=== PATIENT | male | born 1960 | race Caucasian/White ===

== ENCOUNTER 2019-02-09 22:21 | Observation (INO) ==
[2019-02-09] MEDS ORDERED: Aspirin 81 MG TAB.CHEW PO ONE (22:33)
[2019-02-09 22:47] LABS: Basophils % 0.4 %; Eosinophils % 0.2 %; Hematocrit 38.6 % (37.5-50.1); Hemoglobin 12.5 g/dL (12.9-16.9); Immature Granulocytes % 0.8 % (0-4); Lymphocytes % 21.8 %; Mean Corpuscular HGB Conc 32.4 g/dL (31.6-35.5); Mean Corpuscular Hemoglobin 26.2 pg (28.0-33.3); Mean Corpuscular Volume 80.8 fL (83.0-100.0); Mean Platelet Volume 9.8 fL (9.4-12.4); Monocytes # 0.7 K/mcL (0.0-1.3); Neutrophils # 6.3 K/mcL (1.6-8.9); Platelet Count 236 K/mcL (140-400); Red Blood Count 4.78 M/mcL (4.19-5.50); Red Cell Distribution Width 13.6 % (11.5-14.5); Segmented Neutrophils % 68.8 %; White Blood Count 9.1 K/mcL (4.3-11.1)
[2019-02-09 23:02] LABS: Activated Partial Thrombo Time 28.8 Seconds (26.0-36.0)
[2019-02-09 23:06] LABS: BUN/Creatinine Ratio 20 (6-26); Blood Urea Nitrogen 22 mg/dL (6-20); Calcium 8.6 mg/dL (8.6-10.3); Carbon Dioxide 23 mEq/L (23-29); Chloride 103 mEq/L (98-107); Glucose 401 mg/dL (70-105); Osmolality,Calculated 302 (280-300); Potassium 3.7 mEq/L (3.5-5.1); Sodium 136 mEq/L (136-145); eGFR For African Americans > 60 (> 60); eGFR For Non-African Americans > 60 (> 60)
[2019-02-09 23:15] LABS: Troponin I 0.04 ng/mL (< 0.04)
--- NOTE | 2019-02-09 23:23 | Emergency Department Note ---
Disposition Clinical Impression: Chest pain Disposition: Admitted As Inpatient Condition: Good Time of Disposition: 01:30 Chest Pain HPI - General Chief Complaint: ED Chest Pain Stated Complaint: chest pain Source: patient Mode of arrival: private vehicle Limitations: no limitations Vital Signs Reviewed: Yes Nursing Notes Reviewed: Yes - History of Present Illness HPI Narrative: Patient presents to the ED complaining of intermittent chest pain is been going on all day since about 12:30 PM. He was cleaning some things out around his home but denies any particular strenuous activity. The heaviest thing he lifted was a microwave. Pain is across the upper chest and he describes it as a dull and throbbing pain. It was 7 out of 10 at its worse. Episodes would last for 5-10 minutes at a time. There is no associated shortness of breath, lightheadedness or dizziness. No palpitations or leg swelling. He states his last episode of pain resolved just prior to arriving at the ED but his convinced him to get seen anyway. History is notable for CHF, diabetes, high blood pressure, high cholesterol and A. fib. He had an ablation in 2015 and is not aware of any A. fib episodes since then. He states he did have a catheter a few years ago but has never had any stents placed and has never been diagnosed with an PR. He sees cardiology at [facility], Dr. Cruz. He has an appointment with his PCP, Madalyn Yanes on . Severity scale (1-10): 6 - Related Data Home Medications Medication Instructions Recorded Confirmed Insulin ASPART [NovoLOG] 5 - 10 unit SQ TIDWM 08/08/15 02/09/19 Liraglutide [Victoza 2-Foster] 1.2 mg SQ QAM 08/08/15 02/09/19 Lisinopril [Zestril] 40 mg PO QAM 08/08/15 02/09/19 metFORMIN [Glucophage] 1,000 mg PO BIDWM 08/08/15 02/09/19 Aspirin [Lo-Dose Aspirin EC] 81 mg PO QDPC 01/04/17 02/09/19 Carvedilol [Coreg] 25 mg PO BID 12/17/17 02/09/19 Diltiazem HCl [Diltiazem 24Hr Cd] 180 mg PO DAILY 12/17/17 02/09/19 FLUoxetine HCl [Fluoxetine HCl] 40 mg PO DAILY 12/17/17 02/09/19 Furosemide [Lasix] 40 mg PO QMWF 12/17/17 02/09/19 Indomethacin [Indocin] 25 mg PO TIDWM PRN 12/17/17 02/09/19 Pravastatin Sodium [Pravachol] 40 mg PO QPM 12/17/17 02/09/19 Insulin Degludec [Tresiba 28 unit SQ HS 05/08/18 02/09/19 Flextouch U-100] Previous Rx's Medication Instructions Recorded carBAMazepine [Tegretol] 100 mg PO DAILY #10 tablet 07/24/18 Cyclobenzaprine [Flexeril] 10 mg PO TID PRN #21 tablet 09/24/18 Naproxen [Naprosyn] 500 mg PO BID PRN #20 tablet 09/24/18 Allergies Allergy/AdvReac Type Severity Reaction Status Date / Time Procaine [From Novocain] AdvReac Unconscious Verified 02/09/19 22:26 Constitutional: Denies: fever, chills, weakness, weight change Eyes: Denies: eye pain, eye discharge, vision change ENT ED: Denies: ear pain, throat pain, dental pain, hearing loss, epistaxis, congestion, dysphagia Cardiovascular: Reports: as per HPI, chest pain. Denies: palpitations, dyspnea on exertion, edema, syncope Respiratory: Denies: cough, dyspnea, wheezes, hemoptysis, stridor Gastrointestinal: Denies: abdominal pain, nausea, vomiting, diarrhea, cons tipation, hematemesis, melena, hematochezia Genitourinary: Denies: urgency, dysuria, frequency, hematuria Musculoskeletal: Denies: back pain, neck pain, arthralgia, myalgia Integumentary: Denies: rash, abrasion, lesions Neurological: Denies: headache, weakness, numbness, paresthesias, confusion, abn ormal gait, vertigo Psychiatric: Denies: anxiety, depression, suicidal thoughts, homicidal thoughts, auditory hallucinations, visual hallucinations Endocrine: Denies: fatigue Hematological/Lymphatic: Denies: easy bleeding, easy bruising Allergic/Immunologic: Denies: facial swelling, urticaria Chest Pain PMH - Past Medical History Medical history: Reports: arthritis, atrial fibrillation, CHF, diabetes, GERD, hyperlipidemia, hypertension, kidney stones, TIA, other Psychiatric history: Reports: depression - Social History Smoking Status: 2nd Hand Smoke Exposure Alcohol use: Reports: none Drug use: Reports: none Physical Exam - General Limitations: no limitations General appearance: alert, in no apparent distress, obese - Head Head exam: atraumatic, normocephalic, normal inspection - Eye Eye exam: Present: normal appearance - ENT ENT exam: normal exam, normal oropharynx, mucous membranes moist - Neck Neck exam: Present: normal inspection, full ROM, trachea midline - Chest Chest inspection: Present: normal inspection, symmetric chest wall rise. Absent: tenderness - Respiratory Respiratory exam: Present: normal lung sounds bilaterally - Cardiovascular Cardiovascular exam: Present: regular rate, normal rhythm, normal heart sounds - Abdominal Exam Abdominal exam: Present: soft, Non-Tender. Absent: tenderness, distention, guarding, rebound, rigidity - Extremities Exam Extremities exam: Present: normal inspection, full ROM. Absent: tenderness, pedal edema - Back Exam Back exam: Present: normal inspection, full ROM. Absent: tenderness - Neurological Exam Neurological exam: Present: alert, oriented X3 - Psychiatric Psychiatric exam: Present: normal affect, normal mood - Skin Skin exam: Present: warm, dry, intact, normal color Course Course Narrative: Agent presents to the ED with complaint of intermittent chest pain that has been going on all day. He currently is not having any pain. Finger stick glucose is 352. He was very hypertensive initially on arrival 214/96 with this improved to 170/175 daily after arrival. Physical exam is unremarkable. Given his cardiac history however will obtain full cardiac workup including labs and chest x-ray. EKG on arrival does not show any acute ischemic changes - Reevaluation(s) Reevaluation #1: Initial troponin is elevated at 0.04 but patient continues to deny any current chest pain. We will continue to monitor and repeat. Blood pressure and glucose have improved. Reevaluation #2: Repeat EKG is unchanged and repeat troponin remains 0.04. Given patient's cardiac history discuss with him that felt it would be in his best interest to be admitted for continued monitoring and serial troponins. Patient remains chest 3 but is in agreement with admission. I spoke to the hospital for call, Dr. Kaur who agreed to accept the patient. Vital Signs Temperature 97.8 F 02/09/19 22:22 Pulse Rate 70 02/09/19 22:22 Respiratory Rate 16 02/09/19 22:22 Blood Pressure 214/96 02/09/19 22:22 O2 Sat by Pulse Oximetry 94 02/09/19 22:22 Temperature 98.6 F 02/10/19 06:34 Pulse Rate 86 02/10/19 06:34 Respiratory Rate 18 02/10/19 06:34 Blood Pressure 172/76 02/10/19 06:34 O2 Sat by Pulse Oximetry 96 02/10/19 06:34 Oxygen Delivery Oxygen Delivery Room Air Chest Pain - Differential Diagnosis Likely: stable angina, atypical chest pain, chest pain - Medical Records Medical records reviewed: Yes I reviewed the patient's medical records. - Lab Data Lab results reviewed: Yes I reviewed the patient's lab results. Result diagrams: 02/09/19 22:39 02/09/19 22:39 Lab Results 02/09/19 02/09/19 02/09/19 Range/Units 22:30 22:32 22:39 WBC (4.3-11.1) K/mcL RBC (4.19-5.50) M/mcL Hgb (12.9-16.9) g/dL Hct (37.5-50.1) % MCV (83.0-100.0) fL MCH (28.0-33.3) pg MCHC (31.6-35.5) g/dL RDW (11.5-14.5) % Plt Count (140-400) K/mcL MPV (9.4-12.4) fL Immature Gran % (0-4) % Seg Neutrophils % % Lymphocytes % % Monocytes % % Eosinophils % % Basophils % % Neutrophils # (1.6-8.9) K/mcL Lymphocytes # (0.6-4.6) K/mcL Monocytes # (0.0-1.3) K/mcL Eosinophils # (0.0-0.6) K/mcL Basophils # (0.0-0.2) K/mcL PT 11.0 (9.4-12.1) Seconds INR 1.0 APTT 28.8 (26.0-36.0) Seconds Sodium (136-145) mEq/L Potassium (3.5-5.1) mEq/L Chloride (98-107) mEq/L Carbon Dioxide (23-29) mEq/L BUN (6-20) mg/dL Creatinine (0.70-1.30) mg/dL Est GFR ( Amer) (> 60) Est GFR (Non-Af Amer) (> 60) BUN/Creatinine Ratio (6-26) Glucose (70-105) mg/dL POC Glucose 366 H 352 H (70-99) mg/dL Calculated Osmolality (280-300) Calcium (8.6-10.3) mg/dL Troponin I (< 0.04) ng/mL B-Natriuretic Peptide (Less than 100) pg/mL 02/09/19 02/09/19 02/09/19 Range/Units 22:39 22:39 22:39 WBC 9.1 (4.3-11.1) K/mcL RBC 4.78 (4.19-5.50) M/mcL Hgb 12.5 L (12.9-16.9) g/dL Hct 38.6 (37.5-50.1) % MCV 80.8 L (83.0-100.0) fL MCH 26.2 L (28.0-33.3) pg MCHC 32.4 (31.6-35.5) g/dL RDW 13.6 (11.5-14.5) % Plt Count 236 (140-400) K/mcL MPV 9.8 (9.4-12.4) fL Immature Gran % 0.8 (0-4) % Seg Neutrophils % 68.8 % Lymphocytes % 21.8 % Monocytes % 8.0 % Eosinophils % 0.2 % Basophils % 0.4 % Neutrophils # 6.3 (1.6-8.9) K/mcL Lymphocytes # 2.0 (0.6-4.6) K/mcL Monocytes # 0.7 (0.0-1.3) K/mcL Eosinophils # 0.0 (0.0-0.6) K/mcL Basophils # 0.0 (0.0-0.2) K/mcL PT (9.4-12.1) Seconds INR APTT (26.0-36.0) Seconds Sodium 136 (136-145) mEq/L Potassium 3.7 (3.5-5.1) mEq/L Chloride 103 (98-107) mEq/L Carbon Dioxide 23 (23-29) mEq/L BUN 22 H (6-20) mg/dL Creatinine 1.11 (0.70-1.30) mg/dL Est GFR ( Amer) > 60 (> 60) Est GFR (Non-Af Amer) > 60 (> 60) BUN/Creatinine Ratio 20 (6-26) Glucose 401 H (70-105) mg/dL POC Glucose (70-99) mg/dL Calculated Osmolality 302 H (280-300) Calcium 8.6 (8.6-10.3) mg/dL Troponin I 0.04 H* (< 0.04) ng/mL B-Natriuretic Peptide 79 (Less than 100) pg/mL 02/10/19 Range/Units 00:25 WBC (4.3-11.1) K/mcL RBC (4.19-5.50) M/mcL Hgb (12.9-16.9) g/dL Hct (37.5-50.1) % MCV (83.0-100.0) fL MCH (28.0-33.3) pg MCHC (31.6-35.5) g/dL RDW (11.5-14.5) % Plt Count (140-400) K/mcL MPV (9.4-12.4) fL Immature Gran % (0-4) % Seg Neutrophils % % Lymphocytes % % Monocytes % % Eosinophils % % Basophils % % Neutrophils # (1.6-8.9) K/mcL Lymphocytes # (0.6-4.6) K/mcL Monocytes # (0.0-1.3) K/mcL Eosinophils # (0.0-0.6) K/mcL Basophils # (0.0-0.2) K/mcL PT (9.4-12.1) Seconds INR APTT (26.0-36.0) Seconds Sodium (136-145) mEq/L Potassium (3.5-5.1) mEq/L Chloride (98-107) mEq/L Carbon Dioxide (23-29) mEq/L BUN (6-20) mg/dL Creatinine (0.70-1.30) mg/dL Est GFR ( Amer) (> 60) Est GFR (Non-Af Amer) (> 60) BUN/Creatinine Ratio (6-26) Glucose (70-105) mg/dL POC Glucose (70-99) mg/dL Calculated Osmolality (280-300) Calcium (8.6-10.3) mg/dL Troponin I 0.04 H* (< 0.04) ng/mL B-Natriuretic Peptide (Less than 100) pg/mL - Radiology Data Radiology results reviewed: Yes I reviewed the patient's radiology results. - EKG Data EKG attestation: Yes I reviewed and interpreted this EKG. EKG shows normal: sinus rhythm Rate: normal Rhythm: NSR [place]/QRS: normal Interpretation: no acute changes
[2019-02-10] MEDS ORDERED: Naloxone 0.4 MG/ML INJ IVP PRN ×2 (01:32→02:49)
[2019-02-10] MEDS ORDERED: *HR* Dextrose 50 % in Water (Syg) 50 ML SYRINGE IVP PRN ×2 (01:38→02:49)
[2019-02-10] MEDS ORDERED: Dextrose Gel 15 GM/37.5 ML TUBE PO PRN ×4 (01:38→02:49)
[2019-02-10] MEDS ORDERED: D5% in Water 1,000 ML IVC PRN ×2 (01:38→02:49)
[2019-02-10] MEDS ORDERED: Indomethacin 25 MG CAPSULE PO PRN (02:49)
[2019-02-10] MEDS ORDERED: Insulin LISPRO 300 UNITS/3 ML VIAL SQ SCH ×3 (07:30→21:00)
[2019-02-10] MEDS: Insulin LISPRO 300 UNITS/3 ML VIAL SQ SCH ×4 (07:53→12:54)
[2019-02-10] MEDS ORDERED: *HR* Metformin 500 MG TABLET PO SCH (08:00)
[2019-02-10] MEDS ORDERED: Lisinopril 20 MG TABLET PO SCH (09:00)
[2019-02-10] MEDS ORDERED: FLUoxetine 20 MG CAPSULE PO SCH (09:00)
[2019-02-10] MEDS ORDERED: VICTOZA 1.2 MG SQ SCH ×2 (09:00)
[2019-02-10] MEDS ORDERED: Furosemide 40 MG TABLET PO SCH (09:00)
[2019-02-10] MEDS ORDERED: Diltiazem CD (24hr) 180 MG CAPSULE PO SCH (09:00)
[2019-02-10] MEDS ORDERED: carBAMazepine 200 MG TABLET PO SCH (09:00)
[2019-02-10] MEDS ORDERED: Aspirin Enteric Coated 81 MG Tablet PO SCH (09:00)
--- NOTE | 2019-02-10 12:41 | Internal Med History&Physical ---
Date of Encounter: 02/10/19 Time of Encounter: 12:00 Assessment and Plan (1) Chest pain Current visit: Yes Status: Acute Doubt myocardial ischemia from history and physical. Repeat cardiac enzymes have been ordered. Qualifiers: Chest pain type: unspecified Qualified Code(s): R07.9 - Chest pain, u nspecified (2) Hypertension Current visit: Yes Status: Chronic Blood pressure was significantly elevated at 214/96 in emergency room. It has returned to safe range. Continue to monitor. Qualifiers: Hypertension type: essential hypertension Qualified Code(s): I10 - Essen tial (primary) hypertension (3) DM type 2 (diabetes mellitus, type 2) Current visit: Yes Status: Acute Hemoglobin A1c was 7.0% on 01/12/2019. Continue basal insulin, Glucophage, Victoza, and Accu-Cheks with SSI. Qualifiers: Diabetes mellitus terminal gauger insulin use: with terminal gauger use Diabetes mellitus complication status: without complication Qualified Code(s): E11.9 - Type 2 diabetes mellitus without complications; Z79.4 - long-term (current) use of insulin (4) Microcytic anemia Current visit: Yes Status: Acute Iron studies will be ordered. Internal Medicine - H&P: HPI Chief complaint: Chest discomfort Admitted From: Emergency Dept Plans for Post Hospital Care: Home History of present illness: Mr. Brewer is a 58 year old male who came to emergency room stating he had recurrent onset of discomfort in his chest approximately 9 PM while at leisure. He describes it as a "dull throb" sensation across his entire upper chest area. There was no dyspnea nausea or vomiting associated. He reports a previous episode several hours earlier in the day while doing light work which had resolved when he awakened from a brief nap. He became concerned so came to emergency room. He was evaluated and admitted to [facility] floor for ongoing care needs. He states he is asymptomatic at this time and wishes to be discharged home. He denies previous similar episodes. He reports he walked 4 miles a few days ago without any chest discomfort. Cardiovascular history is positive for hypertension and history of atrial fibrillation with 2 ablation procedures which resolved the AF. Most recent ablation was approximately 2014. He denies angina or anginal equivalents, heart failure, DVT or pulmonary embolus. Past Med Surg Social Fam HX - Past Medical History Medical history: arthritis, atrial fibrillation, CHF, diabetes, GERD, hyperlipidemia, hypertension, kidney stones, TIA, other Additional medical history: CARDIAC ABLASION Psychiatric history: depression - Past Surgical History Additional surgical history: veins removed from legs, heart cath, CARDIAC ABLATION - Social History Smoking Status: 2nd Hand Smoke Exposure Smokeless Tobacco Status: No Alcohol use: none Drug use: none - Family History Father Age: 81 Family Member Ethnicity: Non- Living Status: Still Living Hx Family Respiratory Disorders: Yes (COPD) Mother Name: MICHAEL BREWER Family Member Ethnicity: Non- Living Status: Age at : 71 Cause of : COPD Hx Family Respiratory Disorders: Yes (COPD) Internal Medicine - H&P: Meds Insulin ASPART [NovoLOG] 5 - 10 unit SQ TIDWM 08/08/15 [History] Liraglutide [Victoza 2-Foster] 1.2 mg SQ QAM 08/08/15 [History] Lisinopril [Zestril] 40 mg PO QAM 08/08/15 [History] metFORMIN [Glucophage] 1,000 mg PO BIDWM 08/08/15 [History] Aspirin [Lo-Dose Aspirin EC] 81 mg PO QDPC 01/04/17 [History] Carvedilol [Coreg] 25 mg PO BID 12/17/17 [History] Diltiazem HCl [Diltiazem 24Hr Cd] 180 mg PO DAILY 12/17/17 [History] FLUoxetine HCl [Fluoxetine HCl] 40 mg PO DAILY 12/17/17 [History] Furosemide [Lasix] 40 mg PO QMWF 12/17/17 [History] Indomethacin [Indocin] 25 mg PO TIDWM PRN 12/17/17 [History] Pravastatin Sodium [Pravachol] 40 mg PO QPM 12/17/17 [History] Insulin Degludec [Tresiba Flextouch U-100] 28 unit SQ HS 05/08/18 [History] carBAMazepine [Tegretol] 100 mg PO DAILY #10 tablet 07/24/18 [Rx] Cyclobenzaprine [Flexeril] 10 mg PO TID PRN #21 tablet 09/24/18 [Rx] Naproxen [Naprosyn] 500 mg PO BID PRN #20 tablet 09/24/18 [Rx] Allergy/AdvReac Type Severity Reaction Status Date / Time Procaine [From Novocain] AdvReac Unconscious Verified 02/09/19 22:26 All Systems PM: A 10-system review of systems was performed and is negative for pertinent fi ndings except as documented above in the HPI. Review of systems: Gen.: He states his weight decreased from 469 pounds to 311 pounds in the past 2 years, intentional He has regained slight amount of weight. Cardiovascular: As per history of present illness Respiratory: He is a lifelong nonsmoker and denies chronic lung disease. He has been diagnosed with THEO and uses CPAP at bedtime since 2000. GI: He denies disorders of his liver gallbladder or exocrine pancreas. Reports colon polyp resection 2007. Follow-up colonoscopy has been done without further polypectomy needed. : He denies hematuria or dysuria. He has had kidney stones in the past. Neurologic: He reports a TIA in 2006 without recurrence. He takes aspirin 81 mg daily. He denies large distribution strokes or seizures. Endocrine: He was diagnosed with DM 2 approximately 2006. Reports blood sugars are generally well controlled. He has hyperlipidemia but denies known thyroid disease. Hematology/oncology: He was unaware he had microcytic anemia on labs in emergency room. He denies known internal malignancies or other blood disorders. Psychiatric: He has depression but denies anxiety or other mental health issues. [place] skeletal: He has DJD and had recent left knee aspiration with steroid injection. He has a diagnosis of gout. - Constitutional Vitals: Temp Pulse Resp BP Pulse Ox 97.8 F 51 16 142/66 96 02/10/19 10:29 02/10/19 10:29 02/10/19 10:29 02/10/19 10:29 02/10/19 10:29 Exam: Gen.: He is a well-developed overweight male who appears in no acute distress at present time HEENT: Head is atraumatic and normocephalic. Eyes: EOMI. There is no scleral icterus. Mouth: Mucosa is moist. Neck: Supple and nontender. There is no thyromegaly or adenopathy noted. Heart: Regular with occasional ectopic beat. No murmurs or gallops are heard. Chest: He is not tender in his chest wall to palpation. Abdomen: He has a midline ventral abdominal hernia that is easily reducible. No masses or guarding are noted. Extremities: There is no cyanosis edema or clubbing noted. Dorsalis pedis and posterior tibial pulses are trace to 1+ palpable bilaterally. Neurologic: Mental status: He is talkative and a good historian. Cranial nerves: Smile is symmetric. Forehead wrinkles bilaterally. Tongue protrudes midline. EOMI. Motor: There is no pronator drift. Cerebellar: Finger to nose is intact bilaterally. Skin: Warm and dry Internal Med - H&P Results - Labs CBC & Chem 7: 02/09/19 22:39 02/09/19 22:39 Labs: Short CBC 02/09/19 Range/Units 22:39 WBC 9.1 (4.3-11.1) K/mcL Hgb 12.5 L (12.9-16.9) g/dL Hct 38.6 (37.5-50.1) % Plt Count 236 (140-400) K/mcL Neutrophils # 6.3 (1.6-8.9) K/mcL BMP 02/09/19 22:39 Sodium 136 Potassium 3.7 Chloride 103 Carbon Dioxide 23 BUN 22 H Creatinine 1.11 Glucose 401 H Calcium 8.6 Cardiac Enzymes 02/09/19 02/10/19 02/10/19 Range/Units 22:39 00:25 06:42 Troponin I 0.04 H* 0.04 H* 0.04 H* (< 0.04) ng/mL - Impressions ITS Impressions Chest X-Ray 02/09/19 22:33 IMPRESSION: No acute disease. D/ / Guillermo Arriaga MD / Guillermo Arriaga MD Interpreting Provider: Guillermo Arriaga MD - VTE Reasons for not Prescribing Prophylaxis: Treatment not Indicated - Low risk for VTE
[2019-02-10 13:15] LABS: Magnesium 1.5 mg/dL (1.6-2.6)
[2019-02-10 13:26] LABS: Thyroid Stimulating Hormone 0.689 mcIU/mL (0.340-5.600)
[2019-02-10] MEDS ORDERED: Isovue-370 500 ML BOTTLE IVP ONE (14:46)
[2019-02-10 15:05] VITALS: BP 161/85
--- NOTE | 2019-02-10 16:33 | Discharge Summary ---
Orders not resulted at time of discharge: Pending orders 02/09/19 22:33 ECG 12 lead ECG [ECG] Stat 02/10/19 00:57 ECG 12 lead ECG [ECG] Stat 02/10/19 12:40 Ferritin Routine Folate Routine Iron Profile Routine Vitamin B12 Routine Date of Encounter: 02/10/19 Time of Encounter: 16:25 - Discharge Diagnosis (1) Chest pain Priority: Primary Status: Resolved Qualifiers: Chest pain type: unspecified Qualified Code(s): R07.9 - Chest pain, unspecified (2) Hypertension Priority: Secondary Status: Chronic Qualifiers: Hypertension type: essential hypertension Qualified Code(s): I10 - Essential (primary) hypertension (3) DM type 2 (diabetes mellitus, type 2) Priority: Secondary Status: Chronic Qualifiers: Diabetes mellitus long distance billing operator insulin use: with long distance billing operator use Diabetes mellitus complication status: without complication Qualified Code(s): E11.9 - Type 2 diabetes mellitus without complications; Z79.4 - terminal press operator (current) use of insulin (4) Microcytic anemia Priority: Secondary Status: Acute (5) Lung nodule Priority: Secondary Status: Acute Hospital course: Mr. Lopez is a 58 year old male who came to emergency room stating he had recurrent onset of discomfort in his chest approximately 9 PM while at leisure. He describes it as a "dull throb" sensation across his entire upper chest area. There was no dyspnea nausea or vomiting associated. He reports a previous episode several hours earlier in the day while doing light work which had resolved when he awakened from a brief nap. He became concerned so came to emergency room. He was evaluated and admitted to [facility] for ongoing care needs. Initial orders were written by the emergency room physician. I saw him on February 10 and performed a history and physical. Repeat cardiac enzymes showed no evidence of myocardial damage. Troponin remained stable at 0.04 on serial testing. D-dimer returned significantly elevated at 1247. Chest CT was ordered which showed no evidence of PE. There was a 6 mm right lower lobe nodule with recommended follow-up in 6-12 months. His PCP can order follow-up CT at the appropriate time. I explained to the patient the etiology of his chest pain was not determined with certainty. TSH returned normal at 0.689. Anemia testing was ordered with results pending at time of discharge. I told him I suspected that he was possibly iron deficient from use of aspirin. His PCP can follow up on labs. Magnesium level returned minimally low at 1.5. He was given a dose of magnesium oxide 400 mg prior to discharge. His PCP can order follow-up labs to monitor. On the afternoon of February 10 he felt stable for discharge home. He will follow with his PCP Madalyn Yanes CNP within 1 week. - Time Spent with Patient Total time spent providing and/or coordinating discharge services: - Discharge Medications Prescriptions: Continued Insulin ASPART [NovoLOG] 5 - 10 unit SQ TIDWM metFORMIN [Glucophage] 1,000 mg PO BIDWM Lisinopril [Zestril] 40 mg PO QAM Liraglutide [Victoza 2-Foster] 1.2 mg SQ QAM Aspirin [Lo-Dose Aspirin EC] 81 mg PO QDPC Carvedilol [Coreg] 25 mg PO BID FLUoxetine HCl [Fluoxetine HCl] 40 mg PO DAILY Indomethacin [Indocin] 25 mg PO TIDWM PRN PRN Reason: swelling Pravastatin Sodium [Pravachol] 40 mg PO QPM Furosemide [Lasix] 40 mg PO QMWF Diltiazem HCl [Diltiazem 24Hr Cd] 180 mg PO DAILY Insulin Degludec [Tresiba Flextouch U-100] 28 unit SQ HS carBAMazepine [Tegretol] 100 mg PO DAILY #10 tablet Cyclobenzaprine [Flexeril] 10 mg PO TID PRN #21 tablet PRN Reason: Pain Naproxen [Naprosyn] 500 mg PO BID PRN #20 tablet PRN Reason: Pain Home Medications: Insulin ASPART [NovoLOG] 5 - 10 unit SQ TIDWM 08/08/15 [History] Liraglutide [Victoza 2-Foster] 1.2 mg SQ QAM 08/08/15 [History] Lisinopril [Zestril] 40 mg PO QAM 08/08/15 [History] metFORMIN [Glucophage] 1,000 mg PO BIDWM 08/08/15 [History] Aspirin [Lo-Dose Aspirin EC] 81 mg PO QDPC 01/04/17 [History] Carvedilol [Coreg] 25 mg PO BID 12/17/17 [History] Diltiazem HCl [Diltiazem 24Hr Cd] 180 mg PO DAILY 12/17/17 [History] FLUoxetine HCl [Fluoxetine HCl] 40 mg PO DAILY 12/17/17 [History] Furosemide [Lasix] 40 mg PO QMWF 12/17/17 [History] Indomethacin [Indocin] 25 mg PO TIDWM PRN 12/17/17 [History] Pravastatin Sodium [Pravachol] 40 mg PO QPM 12/17/17 [History] Insulin Degludec [Tresiba Flextouch U-100] 28 unit SQ HS 05/08/18 [History] carBAMazepine [Tegretol] 100 mg PO DAILY #10 tablet 07/24/18 [Rx] Cyclobenzaprine [Flexeril] 10 mg PO TID PRN #21 tablet 09/24/18 [Rx] Naproxen [Naprosyn] 500 mg PO BID PRN #20 tablet 09/24/18 [Rx] Allergies/Adverse Reactions: Allergy/AdvReac Type Severity Reaction Status Date / Time Procaine [From Novocain] AdvReac Unconscious Verified 02/09/19 22:26 Date of admission: 02/10/19 02:00 Primary care physician: Madalyn Yanes CNP - Constitutional Vitals: Temp Pulse Resp BP Pulse Ox 98.1 F 57 16 161/85 96 02/10/19 15:04 02/10/19 15:04 02/10/19 15:04 02/10/19 15:04 02/10/19 15:04 - Patient Status Disposition: Home, Self-Care Condition: Good - Discharge Instructions Follow Up With: Madalyn Yanes CNP [Primary Care Provider] - 1 week - Diet and Activity Activity: resume usual activities as tolerated Diet: diabetic diet - VTE Reasons for not Prescribing Prophylaxis: Treatment not Indicated - Low risk for VTE
[2019-02-10 17:14] LABS: % Iron Saturation 12 % (20-55); Iron 42 mcg/dL (65-175); Transferrin 253 mg/dL (203-362)
[2019-02-10 17:31] LABS: Ferritin 31 ng/mL (20-250)
[2019-02-10 17:41] LABS: Folate > 22.3 ng/mL (3.0-16.0); Vitamin B12 611 pg/mL (250-1100)
[2019-02-10] MEDS ORDERED: Insulin DETEMIR 100 UNIT/ML X5UNITS SQ SCH (21:00)
[2019-02-11] MEDS ORDERED: Magnesium Oxide 400 MG TABLET PO ONE (16:40)
--- NOTE | 2019-02-12 00:07 | Electrocardiograph Report ---
[place] [employer] [facility] Test Date: 2019-02-09 Pat Name: Eladio Lopez Department: EDP-15 Room: [facility] Gender: M Street Photographer: : 1960 Requested By: Geneva Mack Order Number: [id number] Reading MD: Castillo Rider Measurements Intervals [place] Rate: 69 P: 35 ID: [id number] QRS: 18 QRSD: 111 T: 57 QT: 404 QTc: 433 Interpretive Statements Sinus rhythm Abnormal R-wave progression, early transition Electronically Signed On 02-12-2019 0:06:20 EDT by Castillo Rider
--- NOTE | 2019-02-12 00:09 | Electrocardiograph Report ---
[employer] [facility] Test Date: 2019-02-10 Pat Name: Eladio Lopez Department: EDP-15 Room: [facility] Gender: M Health Inspector Food: : 1960 Requested By: Geneva Mack Order Number: [id number] Reading MD: Castillo Rider Measurements Intervals [place] Rate: 63 P: 22 GA: 194 QRS: 12 QRSD: 112 T: 52 QT: 424 QTc: 434 Interpretive Statements Sinus rhythm Borderline intraventricular conduction delay Abnormal R-wave progression, early transition Electronically Signed On 02-12-2019 0:07:58 EDT by Castillo Rider
== END 2019-02-10 17:13 | disposition home or self-care (01) ==
LOC: INPPIK 22:21 → EMEROOPIK 22:21 → INPPIK 02-10 02:17
PROVIDERS: ADMIT Internal Medicine; ATTEND Internal Medicine

== ENCOUNTER 2020-09-13 10:08 | Inpatient (IN) ==
[2020-09-13] MEDS ORDERED: 0.9 % Sodium Chloride 1,000 ML IVC ONE (10:20)
[2020-09-13] MEDS ORDERED: Vancomycin 1,500 MG/265 ML IV.SOLN IVPB ONE (10:20)
[2020-09-13] MEDS ORDERED: Clindamycin 600 MG/50 ML 600 MG/50 ML IV.SOLN IVPB ONE (10:20)
[2020-09-13 10:47] LABS: Basophils # 0.1 K/mcL (0.0-0.2); Basophils % 0.5 %; Eosinophils # 0.2 K/mcL (0.0-0.6); Eosinophils % 0.9 %; Hemoglobin 13.3 g/dL (12.9-16.9); Immature Granulocytes % 4.6 % (0-4); Lymphocytes # 1.8 K/mcL (0.6-4.6); Lymphocytes % 9.9 %; Mean Corpuscular HGB Conc 32.4 g/dL (31.6-35.5); Mean Corpuscular Volume 80.2 fL (83.0-100.0); Mean Platelet Volume 9.4 fL (9.4-12.4); Monocytes # 1.2 K/mcL (0.0-1.3); Monocytes % 6.7 %; Neutrophils # 14.2 K/mcL (1.6-8.9); Platelet Count 317 K/mcL (140-400); Red Blood Count 5.11 M/mcL (4.19-5.50); Red Cell Distribution Width 13.2 % (11.5-14.5); Segmented Neutrophils % 77.4 %; White Blood Count 18.3 K/mcL (4.3-11.1)
[2020-09-13 10:56] LABS: INR 1.3; Prothrombin Time 15.4 Seconds (9.4-12.1)
[2020-09-13 11:02] LABS: Calcium 8.9 mg/dL (8.6-10.3); Potassium 3.9 mEq/L (3.5-5.1)
[2020-09-13] MEDS: 0.9 % Sodium Chloride 1,000 ML IVC SCH ×2 (11:27→20:19)
[2020-09-13] MEDS ORDERED: Naloxone 0.4 MG/ML INJ IVP PRN (13:22)
[2020-09-13] MEDS ORDERED: Ondansetron ODT 4 MG TAB.RAPDIS SL PRN (13:22)
[2020-09-13] MEDS ORDERED: MOM Conc 10 ML UD.LIQ PO PRN (13:22)
[2020-09-13] MEDS ORDERED: Apixaban 5 MG TABLET PO SCH (13:30)
[2020-09-13] MEDS ORDERED: *HR* Dextrose 50 % in Water (Vial) 50 ML VIAL IVP PRN (14:06)
[2020-09-13] MEDS ORDERED: Dextrose Gel 15 GM/37.5 ML TUBE PO PRN ×2 (14:06)
[2020-09-13] MEDS ORDERED: D5% in Water 1,000 ML IVC PRN (14:06)
[2020-09-13] MEDS ORDERED: Insulin LISPRO 300 UNITS/3 ML VIAL SUBQ ONE (14:09)
[2020-09-13] MEDS: carvediloL 25 MG TABLET PO SCH ×2 (14:54→16:03)
[2020-09-13] MEDS: lisinopriL 20 MG TABLET PO SCH (14:54)
[2020-09-13] MEDS: Aspirin Enteric Coated 81 MG Tablet PO SCH (14:54)
[2020-09-13] MEDS: cefTRIAXone 2,000 MG in 0.9 % Sodium Chloride Mini Bag 100 ML IVPB SCH (14:54)
[2020-09-13] MEDS: DilTIAZem CD (24hr) 180 MG CAP.ER.24H PO SCH (14:54)
[2020-09-13] MEDS: Acetaminophen 325 MG TABLET PO PRN (16:31)
[2020-09-13] MEDS: *HR* Metformin 500 MG TABLET PO SCH (16:31)
[2020-09-13] MEDS: Insulin LISPRO 300 UNITS/3 ML VIAL SUBQ SCH ×2 (16:32→21:49)
[2020-09-13] MEDS: *HR* OxyCODONE Immed Rel 5 MG TABLET PO PRN (16:34)
[2020-09-13 18:39] LABS: Amphetamine Screen,Urine Positive ng/mL (Cutoff=1000); Barbiturate Screen,Urine Negative ng/mL (Cutoff=200); Benzodiazepines Screen,Urine Negative ng/mL (Cutoff=200); Cannabinoid Screen,Urine Negative ng/mL (Cutoff = 50); Cocaine Screen,Urine Negative ng/mL (Cutoff= 300); Opiate Screen,Urine Negative ng/mL (Cutoff=300); Phencyclidine Screen,Urine Negative ng/mL (Cutoff=25)
[2020-09-13] MEDS: Insulin DETEMIR 100 UNIT/ML X5UNITS SUBQ SCH (21:54)
[2020-09-14] MEDS: Acetaminophen 325 MG TABLET PO PRN ×2 (01:40→19:40)
[2020-09-14] MEDS: 0.9 % Sodium Chloride 1,000 ML IVC SCH ×3 (04:50→22:09)
[2020-09-14] MEDS: Insulin LISPRO 300 UNITS/3 ML VIAL SUBQ SCH ×4 (07:29→20:33)
[2020-09-14 07:31] LABS: BUN/Creatinine Ratio 21 (6-26); Blood Urea Nitrogen 27 mg/dL (6-20); Calcium 8.5 mg/dL (8.6-10.3); Carbon Dioxide 30 mEq/L (23-29); Chloride 99 mEq/L (98-107); Chol/HDL Ratio 6.8 (0-4.9); Cholesterol 135 mg/dL (< 200); Glucose 142 mg/dL (70-105); HDL Cholesterol 20 mg/dL (40-59); LDL Cholesterol,Calculated 91 mg/dL (< 100); Magnesium 1.4 mg/dL (1.6-2.6); Osmolality,Calculated 290 (280-300); Potassium 4.2 mEq/L (3.5-5.1); Sodium 136 mEq/L (136-145); Triglycerides 118 mg/dL (< 150); eGFR For African Americans > 60 (> 60); eGFR For Non-African Americans 58 (> 60)
[2020-09-14] MEDS: VICTOZA 1.2 MG SQ SCH (07:48)
[2020-09-14] MEDS: FLUoxetine 20 MG CAPSULE PO SCH (07:53)
[2020-09-14] MEDS: DilTIAZem CD (24hr) 180 MG CAP.ER.24H PO SCH (07:53)
[2020-09-14] MEDS: lisinopriL 20 MG TABLET PO SCH (07:53)
[2020-09-14] MEDS: *HR* Metformin 500 MG TABLET PO SCH ×2 (07:53→16:49)
[2020-09-14] MEDS: Aspirin Enteric Coated 81 MG Tablet PO SCH (07:53)
[2020-09-14] MEDS: carvediloL 25 MG TABLET PO SCH ×2 (07:54→16:49)
[2020-09-14 08:16] LABS: Basophils # 0.1 K/mcL (0.0-0.2); Basophils % 0.6 %; Eosinophils # 0.4 K/mcL (0.0-0.6); Eosinophils % 2.1 %; Hematocrit 38.9 % (37.5-50.1); Hemoglobin 12.3 g/dL (12.9-16.9); Immature Granulocytes % 2.7 % (0-4); Lymphocytes # 1.9 K/mcL (0.6-4.6); Lymphocytes % 11.4 %; Mean Corpuscular HGB Conc 31.6 g/dL (31.6-35.5); Mean Corpuscular Hemoglobin 25.7 pg (28.0-33.3); Mean Corpuscular Volume 81.4 fL (83.0-100.0); Mean Platelet Volume 9.4 fL (9.4-12.4); Monocytes # 1.1 K/mcL (0.0-1.3); Monocytes % 6.6 %; Neutrophils # 12.9 K/mcL (1.6-8.9); Platelet Count 317 K/mcL (140-400); Red Blood Count 4.78 M/mcL (4.19-5.50); Red Cell Distribution Width 13.3 % (11.5-14.5); Segmented Neutrophils % 76.6 %; White Blood Count 16.8 K/mcL (4.3-11.1)
[2020-09-14 11:02] LABS: % Iron Saturation 7 % (20-55); Iron 11 mcg/dL (65-175); Transferrin 111 mg/dL (203-362)
[2020-09-14 11:06] LABS: Ferritin 493 ng/mL (20-250)
[2020-09-14] MEDS: *HR* OxyCODONE Immed Rel 5 MG TABLET PO PRN (11:18)
[2020-09-14] MEDS: cefTRIAXone 2,000 MG in 0.9 % Sodium Chloride Mini Bag 100 ML IVPB SCH (15:56)
[2020-09-14] MEDS: Iron Polysaccharide Complex 150 MG CAPSULE PO SCH (15:56)
[2020-09-14] MEDS: Sennosides/Docusate Sodium TABLET PO SCH ×2 (15:57→20:34)
[2020-09-14] MEDS: *HR* Enoxaparin 40 MG/0.4 ML SYRINGE SQ SCH (19:41)
[2020-09-14] MEDS: Insulin DETEMIR 100 UNIT/ML X5UNITS SUBQ SCH (20:33)
[2020-09-15] MEDS: *HR* Enoxaparin 40 MG/0.4 ML SYRINGE SQ SCH (05:23)
[2020-09-15] MEDS: 0.9 % Sodium Chloride 1,000 ML IVC SCH ×3 (05:23→21:38)
[2020-09-15] MEDS: FLUoxetine 20 MG CAPSULE PO SCH (07:41)
[2020-09-15] MEDS: Iron Polysaccharide Complex 150 MG CAPSULE PO SCH (07:41)
[2020-09-15] MEDS: *HR* Metformin 500 MG TABLET PO SCH ×2 (07:41→16:19)
[2020-09-15] MEDS: DilTIAZem CD (24hr) 180 MG CAP.ER.24H PO SCH (07:41)
[2020-09-15] MEDS: Aspirin Enteric Coated 81 MG Tablet PO SCH (07:42)
[2020-09-15] MEDS: VICTOZA 1.2 MG SQ SCH (07:42)
[2020-09-15] MEDS: lisinopriL 20 MG TABLET PO SCH (07:42)
[2020-09-15] MEDS: carvediloL 25 MG TABLET PO SCH ×2 (07:46→16:19)
[2020-09-15] MEDS: Insulin LISPRO 300 UNITS/3 ML VIAL SUBQ SCH ×4 (07:46→19:58)
[2020-09-15] MEDS: Sennosides/Docusate Sodium TABLET PO SCH ×2 (07:48→19:59)
[2020-09-15 10:22] LABS: Basophils # 0.1 K/mcL (0.0-0.2); Basophils % 0.6 %; Eosinophils # 0.2 K/mcL (0.0-0.6); Eosinophils % 1.2 %; Hematocrit 37.6 % (37.5-50.1); Hemoglobin 11.9 g/dL (12.9-16.9); Immature Granulocytes % 2.7 % (0-4); Lymphocytes # 1.4 K/mcL (0.6-4.6); Lymphocytes % 9.3 %; Mean Corpuscular HGB Conc 31.6 g/dL (31.6-35.5); Mean Corpuscular Hemoglobin 25.7 pg (28.0-33.3); Mean Corpuscular Volume 81.2 fL (83.0-100.0); Mean Platelet Volume 9.2 fL (9.4-12.4); Monocytes % 6.4 %; Neutrophils # 12.2 K/mcL (1.6-8.9); Platelet Count 340 K/mcL (140-400); Red Blood Count 4.63 M/mcL (4.19-5.50); Red Cell Distribution Width 13.2 % (11.5-14.5); Segmented Neutrophils % 79.8 %; White Blood Count 15.3 K/mcL (4.3-11.1)
[2020-09-15 10:38] LABS: Alanine Aminotransferase 15 Units/L (7-52); Albumin 2.6 g/dL (3.5-5.7); Albumin/Globulin Ratio 0.6 (1.1-2.2); Alkaline Phosphatase 72 Units/L (34-104); Aspartate Amino Transferase 18 Units/L (13-39); BUN/Creatinine Ratio 18 (6-26); Bilirubin,Total 0.5 mg/dL (0.3-1.0); Blood Urea Nitrogen 21 mg/dL (6-20); Calcium 8.4 mg/dL (8.6-10.3); Carbon Dioxide 28 mEq/L (23-29); Chloride 99 mEq/L (98-107); Globulin 4.6 g/dL (2.4-3.5); Glucose 182 mg/dL (70-105); Magnesium 1.3 mg/dL (1.6-2.6); Osmolality,Calculated 284 (280-300); Potassium 4.2 mEq/L (3.5-5.1); Sodium 133 mEq/L (136-145); Total Protein 7.2 g/dL (6.4-8.9); eGFR For African Americans > 60 (> 60); eGFR For Non-African Americans > 60 (> 60)
[2020-09-15] MEDS: Piperacillin/Tazobactam 3.375 GM in 0.9 % Sodium Chloride Mini Bag 100 ML IVPB SCH ×2 (14:47→21:39)
[2020-09-15] MEDS ORDERED: *HR* Enoxaparin 40 MG/0.4 ML SYRINGE SQ SCH (17:21)
[2020-09-15] MEDS: Acetaminophen 325 MG TABLET PO PRN (18:37)
[2020-09-15] MEDS: Insulin DETEMIR 100 UNIT/ML X5UNITS SUBQ SCH (19:59)
[2020-09-15] MEDS: *HR* OxyCODONE Immed Rel 5 MG TABLET PO PRN (23:14)
[2020-09-16] MEDS: *HR* Enoxaparin 40 MG/0.4 ML SYRINGE SQ SCH (05:16)
[2020-09-16] MEDS: 0.9 % Sodium Chloride 1,000 ML IVC SCH (05:17)
[2020-09-16] MEDS: Piperacillin/Tazobactam 3.375 GM in 0.9 % Sodium Chloride Mini Bag 100 ML IVPB SCH ×3 (05:18→22:12)
[2020-09-16 07:03] LABS: Hematocrit RBC Folate 38.5 %
[2020-09-16 07:04] LABS: Basophils # 0.1 K/mcL (0.0-0.2); Basophils % 0.5 %; Eosinophils # 0.2 K/mcL (0.0-0.6); Eosinophils % 1.6 %; Hemoglobin 11.5 g/dL (12.9-16.9); Immature Granulocytes % 1.5 % (0-4); Lymphocytes # 1.8 K/mcL (0.6-4.6); Lymphocytes % 12.2 %; Mean Corpuscular HGB Conc 31.9 g/dL (31.6-35.5); Mean Corpuscular Hemoglobin 25.8 pg (28.0-33.3); Mean Corpuscular Volume 80.9 fL (83.0-100.0); Mean Platelet Volume 8.7 fL (9.4-12.4); Monocytes % 6.5 %; Neutrophils # 11.4 K/mcL (1.6-8.9); Platelet Count 329 K/mcL (140-400); Red Blood Count 4.45 M/mcL (4.19-5.50); Red Cell Distribution Width 13.2 % (11.5-14.5); Segmented Neutrophils % 77.7 %; White Blood Count 14.7 K/mcL (4.3-11.1)
[2020-09-16 07:25] LABS: Alanine Aminotransferase 15 Units/L (7-52); Albumin 2.5 g/dL (3.5-5.7); Albumin/Globulin Ratio 0.5 (1.1-2.2); Alkaline Phosphatase 64 Units/L (34-104); Aspartate Amino Transferase 19 Units/L (13-39); BUN/Creatinine Ratio 13 (6-26); Bilirubin,Total 0.6 mg/dL (0.3-1.0); Blood Urea Nitrogen 14 mg/dL (6-20); Calcium 8.3 mg/dL (8.6-10.3); Carbon Dioxide 28 mEq/L (23-29); Chloride 99 mEq/L (98-107); Globulin 4.8 g/dL (2.4-3.5); Glucose 120 mg/dL (70-105); Magnesium 1.2 mg/dL (1.6-2.6); Osmolality,Calculated 276 (280-300); Sodium 132 mEq/L (136-145); Total Protein 7.3 g/dL (6.4-8.9); eGFR For African Americans > 60 (> 60); eGFR For Non-African Americans > 60 (> 60)
[2020-09-16] MEDS: Insulin LISPRO 300 UNITS/3 ML VIAL SUBQ SCH ×4 (07:53→21:07)
[2020-09-16] MEDS: DilTIAZem CD (24hr) 180 MG CAP.ER.24H PO SCH (09:16)
[2020-09-16] MEDS: *HR* Metformin 500 MG TABLET PO SCH ×2 (09:16→16:38)
[2020-09-16] MEDS: FLUoxetine 20 MG CAPSULE PO SCH (09:16)
[2020-09-16] MEDS: Sennosides/Docusate Sodium TABLET PO SCH ×2 (09:16→22:12)
[2020-09-16] MEDS: Aspirin Enteric Coated 81 MG Tablet PO SCH (09:16)
[2020-09-16] MEDS: carvediloL 25 MG TABLET PO SCH ×2 (09:16→16:38)
[2020-09-16] MEDS: lisinopriL 20 MG TABLET PO SCH (09:16)
[2020-09-16] MEDS: *HR* OxyCODONE Immed Rel 5 MG TABLET PO PRN ×3 (09:24→22:52)
[2020-09-16] MEDS: VICTOZA 1.2 MG SQ SCH (09:25)
[2020-09-16] MEDS: Iron Polysaccharide Complex 150 MG CAPSULE PO SCH (10:13)
[2020-09-16] MEDS: Acetaminophen 325 MG TABLET PO PRN (13:14)
[2020-09-17] MEDS: Piperacillin/Tazobactam 3.375 GM in 0.9 % Sodium Chloride Mini Bag 100 ML IVPB SCH ×2 (06:05→13:22)
[2020-09-17] MEDS: *HR* Enoxaparin 40 MG/0.4 ML SYRINGE SQ SCH (06:06)
[2020-09-17] MEDS: *HR* Metformin 500 MG TABLET PO SCH (07:29)
[2020-09-17] MEDS: Aspirin Enteric Coated 81 MG Tablet PO SCH (07:30)
[2020-09-17] MEDS: FLUoxetine 20 MG CAPSULE PO SCH (07:30)
[2020-09-17] MEDS: *HR* OxyCODONE Immed Rel 5 MG TABLET PO PRN (07:30)
[2020-09-17] MEDS: Iron Polysaccharide Complex 150 MG CAPSULE PO SCH (07:31)
[2020-09-17] MEDS: carvediloL 25 MG TABLET PO SCH (07:31)
[2020-09-17] MEDS: lisinopriL 20 MG TABLET PO SCH (07:31)
[2020-09-17] MEDS: DilTIAZem CD (24hr) 180 MG CAP.ER.24H PO SCH (07:32)
[2020-09-17] MEDS: Insulin LISPRO 300 UNITS/3 ML VIAL SUBQ SCH ×2 (07:32→11:05)
[2020-09-17] MEDS: VICTOZA 1.2 MG SQ SCH (07:32)
[2020-09-17] MEDS: Sennosides/Docusate Sodium TABLET PO SCH (07:33)
[2020-09-17 08:29] LABS: Basophils # 0.1 K/mcL (0.0-0.2); Basophils % 0.5 %; Eosinophils # 0.3 K/mcL (0.0-0.6); Eosinophils % 2.1 %; Hematocrit 40.4 % (37.5-50.1); Hemoglobin 12.8 g/dL (12.9-16.9); Immature Granulocytes % 1.4 % (0-4); Lymphocytes # 1.7 K/mcL (0.6-4.6); Lymphocytes % 13.2 %; Mean Corpuscular HGB Conc 31.7 g/dL (31.6-35.5); Mean Corpuscular Hemoglobin 25.7 pg (28.0-33.3); Mean Corpuscular Volume 81.1 fL (83.0-100.0); Mean Platelet Volume 8.8 fL (9.4-12.4); Monocytes # 0.8 K/mcL (0.0-1.3); Monocytes % 5.7 %; Neutrophils # 10.2 K/mcL (1.6-8.9); Platelet Count 376 K/mcL (140-400); Red Blood Count 4.98 M/mcL (4.19-5.50); Red Cell Distribution Width 12.9 % (11.5-14.5); Segmented Neutrophils % 77.1 %; White Blood Count 13.2 K/mcL (4.3-11.1)
[2020-09-17 08:42] LABS: Alanine Aminotransferase 18 Units/L (7-52); Albumin 2.7 g/dL (3.5-5.7); Albumin/Globulin Ratio 0.5 (1.1-2.2); Alkaline Phosphatase 67 Units/L (34-104); Aspartate Amino Transferase 23 Units/L (13-39); BUN/Creatinine Ratio 11 (6-26); Bilirubin,Total 0.7 mg/dL (0.3-1.0); Blood Urea Nitrogen 12 mg/dL (6-20); Calcium 8.9 mg/dL (8.6-10.3); Carbon Dioxide 29 mEq/L (23-29); Chloride 96 mEq/L (98-107); Globulin 5.7 g/dL (2.4-3.5); Glucose 118 mg/dL (70-105); Magnesium 1.2 mg/dL (1.6-2.6); Osmolality,Calculated 273 (280-300); Potassium 4.1 mEq/L (3.5-5.1); Sodium 131 mEq/L (136-145); Total Protein 8.4 g/dL (6.4-8.9); eGFR For African Americans > 60 (> 60); eGFR For Non-African Americans > 60 (> 60)
[2020-09-17 11:17] VITALS: BP 137/72
[2020-09-17] MEDS ORDERED: Piperacillin/Tazobactam 3.375 GM in 0.9 % Sodium Chloride Mini Bag 100 ML IVPB SCH (16:00)
[2020-09-17] MEDS ORDERED: Vancomycin 1,500 MG/265 ML IV.SOLN IVPB SCH (23:00)
== END 2020-09-17 13:46 | DRG 638 ==
LOC: INPPIK 10:08 → EMEROOPIK 10:08 → INPPIK 12:24
PROVIDERS: ADMIT Internal Medicine; ATTEND Internal Medicine

== ENCOUNTER 2020-09-17 10:41 | Inpatient (IN) ==
[2020-09-17] MEDS ORDERED: Sennosides/Docusate Sodium TABLET PO PRN (12:57)
[2020-09-17] MEDS ORDERED: Acetaminophen 325 MG TABLET PO PRN (12:57)
[2020-09-17] MEDS ORDERED: MOM Conc 10 ML UD.LIQ PO PRN (12:57)
[2020-09-17] MEDS ORDERED: Piperacillin/Tazobactam 3.375 GM VIAL IVPB SCH (13:00)
[2020-09-17] MEDS ORDERED: Dextrose Gel 15 GM/37.5 ML TUBE PO PRN ×2 (14:30)
[2020-09-17] MEDS ORDERED: D5% in Water 1,000 ML IVC PRN (14:30)
[2020-09-17] MEDS ORDERED: *HR* Dextrose 50 % in Water (Vial) 50 ML VIAL IVP PRN (14:30)
[2020-09-17] MEDS: *HR* HYDROcodone/Acet 5/325 mg TABLET PO PRN (15:43)
[2020-09-17] MEDS: *HR* Metformin 500 MG TABLET PO SCH (15:44)
[2020-09-17] MEDS: carvediloL 25 MG TABLET PO SCH (15:44)
[2020-09-17] MEDS: Insulin LISPRO 300 UNITS/3 ML VIAL SUBQ SCH ×2 (16:56→21:15)
[2020-09-17] MEDS ORDERED: NON-FORMULARY MEDICATION 1 EACH EACH (Insulin Aspart 0 UNIT) SQ SCH (17:00)
[2020-09-17] MEDS ORDERED: Vancomycin 1,000 MG VIAL IVPB SCH (21:00)
[2020-09-17] MEDS: Piperacillin/Tazobactam 3.375 GM in 0.9 % Sodium Chloride Mini Bag 100 ML IVPB SCH (22:11)
[2020-09-17] MEDS: Vancomycin 1,500 MG/265 ML IV.SOLN IVPB SCH (22:11)
[2020-09-18] MEDS: Piperacillin/Tazobactam 3.375 GM in 0.9 % Sodium Chloride Mini Bag 100 ML IVPB SCH ×3 (06:06→21:32)
[2020-09-18] MEDS: *HR* Enoxaparin 40 MG/0.4 ML SYRINGE SQ SCH (06:06)
[2020-09-18 07:50] LABS: Basophils # 0.1 K/mcL (0.0-0.2); Basophils % 0.5 %; Eosinophils # 0.2 K/mcL (0.0-0.6); Eosinophils % 1.6 %; Hematocrit 38.2 % (37.5-50.1); Immature Granulocytes % 0.9 % (0-4); Lymphocytes # 1.8 K/mcL (0.6-4.6); Lymphocytes % 14.3 %; Mean Corpuscular HGB Conc 31.4 g/dL (31.6-35.5); Mean Corpuscular Hemoglobin 25.3 pg (28.0-33.3); Mean Corpuscular Volume 80.4 fL (83.0-100.0); Mean Platelet Volume 8.8 fL (9.4-12.4); Monocytes # 0.8 K/mcL (0.0-1.3); Monocytes % 6.1 %; Neutrophils # 9.6 K/mcL (1.6-8.9); Platelet Count 355 K/mcL (140-400); Red Blood Count 4.75 M/mcL (4.19-5.50); Red Cell Distribution Width 13.1 % (11.5-14.5); Segmented Neutrophils % 76.6 %; White Blood Count 12.5 K/mcL (4.3-11.1)
[2020-09-18] MEDS: Insulin LISPRO 300 UNITS/3 ML VIAL SUBQ SCH ×4 (07:58→21:25)
[2020-09-18 08:12] LABS: Calcium 8.9 mg/dL (8.6-10.3); Potassium 4.2 mEq/L (3.5-5.1)
[2020-09-18] MEDS: carvediloL 25 MG TABLET PO SCH ×2 (08:50→17:19)
[2020-09-18] MEDS: FLUoxetine 20 MG CAPSULE PO SCH (08:50)
[2020-09-18] MEDS: *HR* Metformin 500 MG TABLET PO SCH ×2 (08:51→17:19)
[2020-09-18] MEDS: Aspirin Enteric Coated 81 MG Tablet PO SCH (08:51)
[2020-09-18] MEDS: DilTIAZem CD (24hr) 180 MG CAP.ER.24H PO SCH (08:51)
[2020-09-18] MEDS: (Liraglutide [Victoza 2-Pak] 1.2 MG) SQ SCH (08:51)
[2020-09-18] MEDS: Iron Polysaccharide Complex 150 MG CAPSULE PO SCH (08:51)
[2020-09-18] MEDS ORDERED: carBAMazepine 200 MG TABLET PO SCH (09:00)
[2020-09-18] MEDS ORDERED: lisinopriL 20 MG TABLET PO SCH (09:00)
[2020-09-18] MEDS: Vancomycin 1,500 MG/265 ML IV.SOLN IVPB SCH (11:09)
[2020-09-18] MEDS: *HR* HYDROcodone/Acet 5/325 mg TABLET PO PRN (11:14)
[2020-09-18] MEDS: amLODIPine 5 MG TABLET PO SCH (17:20)
[2020-09-19] MEDS: Vancomycin 1,500 MG/265 ML IV.SOLN IVPB SCH ×3 (00:11→23:31)
[2020-09-19] MEDS: *HR* Enoxaparin 40 MG/0.4 ML SYRINGE SQ SCH (05:12)
[2020-09-19] MEDS: Piperacillin/Tazobactam 3.375 GM in 0.9 % Sodium Chloride Mini Bag 100 ML IVPB SCH ×3 (05:12→20:43)
[2020-09-19] MEDS: *HR* Metformin 500 MG TABLET PO SCH ×2 (09:28→17:11)
[2020-09-19] MEDS: Insulin LISPRO 300 UNITS/3 ML VIAL SUBQ SCH ×4 (09:28→20:42)
[2020-09-19] MEDS: FLUoxetine 20 MG CAPSULE PO SCH (09:28)
[2020-09-19] MEDS: DilTIAZem CD (24hr) 180 MG CAP.ER.24H PO SCH (09:29)
[2020-09-19] MEDS: (Liraglutide [Victoza 2-Pak] 1.2 MG) SQ SCH (09:29)
[2020-09-19] MEDS: Iron Polysaccharide Complex 150 MG CAPSULE PO SCH (09:29)
[2020-09-19] MEDS: carvediloL 25 MG TABLET PO SCH ×2 (09:29→17:11)
[2020-09-19] MEDS: Aspirin Enteric Coated 81 MG Tablet PO SCH (09:29)
[2020-09-19] MEDS: amLODIPine 5 MG TABLET PO SCH (09:29)
[2020-09-19] MEDS: *HR* HYDROcodone/Acet 5/325 mg TABLET PO PRN (18:47)
[2020-09-20] MEDS: *HR* Enoxaparin 40 MG/0.4 ML SYRINGE SQ SCH (04:57)
[2020-09-20] MEDS: Piperacillin/Tazobactam 3.375 GM in 0.9 % Sodium Chloride Mini Bag 100 ML IVPB SCH ×3 (04:57→20:45)
[2020-09-20] MEDS: Insulin LISPRO 300 UNITS/3 ML VIAL SUBQ SCH ×4 (07:39→20:43)
[2020-09-20] MEDS: Aspirin Enteric Coated 81 MG Tablet PO SCH (08:03)
[2020-09-20] MEDS: Iron Polysaccharide Complex 150 MG CAPSULE PO SCH (08:03)
[2020-09-20] MEDS: FLUoxetine 20 MG CAPSULE PO SCH (08:03)
[2020-09-20] MEDS: DilTIAZem CD (24hr) 180 MG CAP.ER.24H PO SCH (08:03)
[2020-09-20] MEDS: carvediloL 25 MG TABLET PO SCH ×2 (08:03→16:27)
[2020-09-20] MEDS: amLODIPine 5 MG TABLET PO SCH (08:03)
[2020-09-20] MEDS: *HR* Metformin 500 MG TABLET PO SCH (08:04)
[2020-09-20] MEDS: (Liraglutide [Victoza 2-Pak] 1.2 MG) SQ SCH (08:04)
[2020-09-20 09:49] LABS: Albumin 2.8 g/dL (3.5-5.7); Albumin/Globulin Ratio 0.5 (1.1-2.2); Bilirubin,Total 0.5 mg/dL (0.3-1.0); Calcium 9.1 mg/dL (8.6-10.3); Globulin 5.8 g/dL (2.4-3.5); Magnesium 1.1 mg/dL (1.6-2.6); Potassium 3.8 mEq/L (3.5-5.1); Total Protein 8.6 g/dL (6.4-8.9)
[2020-09-20] MEDS ORDERED: Ringers Solution, Lactated 1,000 ML IVC ONE (11:22)
[2020-09-20] MEDS: Vancomycin 1,500 MG/265 ML IV.SOLN IVPB SCH (11:24)
[2020-09-20] MEDS: Ringers Solution, Lactated 1,000 ML IVC SCH ×2 (12:55→20:44)
[2020-09-20 13:41] LABS: Bilirubin,Urine Negative (Negative); Blood,Urine Trace-intact (Negative); Clarity,Urine Clear (Clear); Color,Urine Yellow (Yellow); Glucose,Urine (UA) Normal (Normal); Ketones,Urine Negative (Negative); Leukocyte Esterase,Urine Negative (Negative); Nitrite,Urine Negative (Negative); Protein,Urine 100 mg/dL (Neg-Trace); Urobilinogen,Urine Normal (Normal)
[2020-09-20] MEDS: hydrALAZINE 25 MG TABLET PO SCH (16:27)
[2020-09-21] MEDS: Vancomycin 1,500 MG/265 ML IV.SOLN IVPB SCH ×2 (00:03→12:41)
[2020-09-21] MEDS: hydrALAZINE 25 MG TABLET PO SCH ×3 (00:03→15:50)
[2020-09-21] MEDS: *HR* Enoxaparin 40 MG/0.4 ML SYRINGE SQ SCH (05:53)
[2020-09-21] MEDS: Ringers Solution, Lactated 1,000 ML IVC SCH ×2 (05:53→14:25)
[2020-09-21] MEDS: Piperacillin/Tazobactam 3.375 GM in 0.9 % Sodium Chloride Mini Bag 100 ML IVPB SCH ×3 (05:54→20:58)
[2020-09-21] MEDS: Insulin LISPRO 300 UNITS/3 ML VIAL SUBQ SCH ×4 (09:00→20:46)
[2020-09-21] MEDS: carvediloL 25 MG TABLET PO SCH ×2 (09:03→15:50)
[2020-09-21] MEDS: DilTIAZem CD (24hr) 180 MG CAP.ER.24H PO SCH (09:03)
[2020-09-21] MEDS: FLUoxetine 20 MG CAPSULE PO SCH (09:03)
[2020-09-21] MEDS: Iron Polysaccharide Complex 150 MG CAPSULE PO SCH (09:03)
[2020-09-21] MEDS: Aspirin Enteric Coated 81 MG Tablet PO SCH (09:03)
[2020-09-21] MEDS: amLODIPine 5 MG TABLET PO SCH (09:04)
[2020-09-21] MEDS: (Liraglutide [Victoza 2-Pak] 1.2 MG) SQ SCH (09:07)
[2020-09-21] MEDS: *HR* HYDROcodone/Acet 5/325 mg TABLET PO PRN (10:08)
[2020-09-21 10:40] LABS: Albumin 2.9 g/dL (3.5-5.7); Albumin/Globulin Ratio 0.5 (1.1-2.2); Bilirubin,Total 0.6 mg/dL (0.3-1.0); Globulin 5.5 g/dL (2.4-3.5); Potassium 3.7 mEq/L (3.5-5.1); Total Protein 8.4 g/dL (6.4-8.9)
[2020-09-21] MEDS ORDERED: Ringers Solution, Lactated 1,000 ML IVC ONE (11:44)
[2020-09-21] MEDS: Magnesium Oxide 400 MG TABLET PO SCH (20:57)
[2020-09-22] MEDS: *HR* HYDROcodone/Acet 5/325 mg TABLET PO PRN (02:48)
[2020-09-22] MEDS: Piperacillin/Tazobactam 3.375 GM in 0.9 % Sodium Chloride Mini Bag 100 ML IVPB SCH ×3 (05:53→20:47)
[2020-09-22] MEDS: hydrALAZINE 25 MG TABLET PO SCH ×3 (08:47→17:28)
[2020-09-22] MEDS: carvediloL 25 MG TABLET PO SCH ×2 (08:48→17:28)
[2020-09-22] MEDS: Iron Polysaccharide Complex 150 MG CAPSULE PO SCH (08:48)
[2020-09-22] MEDS: (Liraglutide [Victoza 2-Pak] 1.2 MG) SQ SCH (08:48)
[2020-09-22] MEDS: amLODIPine 5 MG TABLET PO SCH (08:48)
[2020-09-22] MEDS: DilTIAZem CD (24hr) 180 MG CAP.ER.24H PO SCH (08:48)
[2020-09-22] MEDS: Aspirin Enteric Coated 81 MG Tablet PO SCH (08:48)
[2020-09-22] MEDS: FLUoxetine 20 MG CAPSULE PO SCH (08:48)
[2020-09-22] MEDS: Magnesium Oxide 400 MG TABLET PO SCH ×2 (08:48→20:46)
[2020-09-22] MEDS: predniSONE 20 MG TABLET PO SCH (08:48)
[2020-09-22] MEDS: Insulin LISPRO 300 UNITS/3 ML VIAL SUBQ SCH ×4 (08:49→20:46)
[2020-09-22] MEDS: *HR* Heparin 5,000 UNIT/ML VIAL SQ SCH ×2 (08:58→17:29)
[2020-09-22 09:32] LABS: Albumin 2.9 g/dL (3.5-5.7); Albumin/Globulin Ratio 0.5 (1.1-2.2); Bilirubin,Total 0.5 mg/dL (0.3-1.0); Globulin 5.3 g/dL (2.4-3.5); Potassium 3.6 mEq/L (3.5-5.1); Total Protein 8.2 g/dL (6.4-8.9)
[2020-09-23] MEDS: hydrALAZINE 25 MG TABLET PO SCH ×2 (00:30→09:03)
[2020-09-23] MEDS: *HR* HYDROcodone/Acet 5/325 mg TABLET PO PRN (00:32)
[2020-09-23] MEDS: *HR* Heparin 5,000 UNIT/ML VIAL SQ SCH (05:48)
[2020-09-23] MEDS: Piperacillin/Tazobactam 3.375 GM in 0.9 % Sodium Chloride Mini Bag 100 ML IVPB SCH (05:49)
[2020-09-23 06:46] VITALS: BP 158/74
[2020-09-23 07:00] LABS: Albumin 3.3 g/dL (3.5-5.7); Albumin/Globulin Ratio 0.6 (1.1-2.2); Bilirubin,Total 0.6 mg/dL (0.3-1.0); Calcium 9.4 mg/dL (8.6-10.3); Globulin 5.6 g/dL (2.4-3.5); Potassium 3.3 mEq/L (3.5-5.1); Total Protein 8.9 g/dL (6.4-8.9)
[2020-09-23] MEDS: Aspirin Enteric Coated 81 MG Tablet PO SCH (09:02)
[2020-09-23] MEDS: amLODIPine 5 MG TABLET PO SCH (09:02)
[2020-09-23] MEDS: FLUoxetine 20 MG CAPSULE PO SCH (09:02)
[2020-09-23] MEDS: predniSONE 20 MG TABLET PO SCH (09:03)
[2020-09-23] MEDS: carvediloL 25 MG TABLET PO SCH (09:03)
[2020-09-23] MEDS: DilTIAZem CD (24hr) 180 MG CAP.ER.24H PO SCH (09:04)
[2020-09-23] MEDS: (Liraglutide [Victoza 2-Pak] 1.2 MG) SQ SCH (09:04)
[2020-09-23] MEDS: Iron Polysaccharide Complex 150 MG CAPSULE PO SCH (09:04)
[2020-09-23] MEDS: Magnesium Oxide 400 MG TABLET PO SCH (09:04)
[2020-09-23] MEDS: Insulin LISPRO 300 UNITS/3 ML VIAL SUBQ SCH ×2 (09:05→11:39)
[2020-09-23] MEDS ORDERED: hydrALAZINE 25 MG TABLET PO SCH (16:00)
== END 2020-09-23 13:15 | disposition home or self-care (01) | DRG 603 ==
LOC: INPPIK 13:49
PROVIDERS: ADMIT Family Medicine; ATTEND Family Medicine

== ENCOUNTER 2022-04-08 22:14 | Inpatient (IN) ==
[2022-04-08] MEDS ORDERED: Ipratropium/Albuterol Neb 3 ML IH ONE (22:39)
[2022-04-08 23:07] LABS: Basophils # 0.1 K/mcL (0.0-0.2); Basophils % 0.8 %; Eosinophils # 0.2 K/mcL (0.0-0.6); Eosinophils % 1.7 %; Hematocrit 37.5 % (37.5-50.1); Hemoglobin 12.3 g/dL (12.9-16.9); Immature Granulocytes % 0.5 % (0-4); Lymphocytes # 2.1 K/mcL (0.6-4.6); Mean Corpuscular HGB Conc 32.8 g/dL (31.6-35.5); Mean Corpuscular Hemoglobin 25.5 pg (28.0-33.3); Mean Corpuscular Volume 77.6 fL (83.0-100.0); Mean Platelet Volume 9.8 fL (9.4-12.4); Monocytes # 0.8 K/mcL (0.0-1.3); Monocytes % 7.4 %; Neutrophils # 7.4 K/mcL (1.6-8.9); Platelet Count 265 K/mcL (140-400); Red Blood Count 4.83 M/mcL (4.19-5.50); Red Cell Distribution Width 14.2 % (11.5-14.5); Segmented Neutrophils % 69.6 %; White Blood Count 10.6 K/mcL (4.3-11.1)
[2022-04-08 23:36] LABS: Calcium 8.4 mg/dL (8.6-10.3); Potassium 5.1 mEq/L (3.5-5.1); Troponin I 0.06 ng/mL (< 0.04)
[2022-04-08] MEDS: 0.9 % Sodium Chloride 1,000 ML IVC SCH (23:54)
[2022-04-09 00:05] LABS: ABG Base Excess -3 mEq/L (-2 to 3); ABG HCO3 23 mEq/L (21-27); ABG Oxygen Saturation 90 % (95-98); ABG PCO2 42 mmHg (35-45); ABG PH 7.35 pH Units (7.32-7.45); ABG PO2 62 mmHg (85-104); ABG TCO2 24 mEq/L (20-26)
[2022-04-09] MEDS ORDERED: Insulin Regular, Human 100 UNIT/ML SUBQ ONE ×2 (00:52→02:04)
[2022-04-09] MEDS ORDERED: methylPREDNISolone 125 MG/2 ML VIAL IVP ONE (00:53)
[2022-04-09] MEDS: 0.9 % Sodium Chloride 1,000 ML IVC SCH ×6 (00:54→17:56)
[2022-04-09] MEDS ORDERED: Aspirin 325 MG TABLET PO ONE (00:58)
[2022-04-09] MEDS ORDERED: Azithromycin 500 MG in 0.9 % Sodium Chloride 250 ML IVPB ONE (00:58)
[2022-04-09] MEDS ORDERED: *HR* Rivaroxaban 10 MG TABLET PO STA (02:08)
[2022-04-09 02:10] LABS: Prothrombin Time 11.2 Seconds (9.4-12.1)
[2022-04-09 02:12] LABS: Activated Partial Thrombo Time 27.6 Seconds (26.0-36.0)
[2022-04-09 02:56] LABS: Calcium 7.8 mg/dL (8.6-10.3); Potassium 4.9 mEq/L (3.5-5.1)
[2022-04-09] MEDS ORDERED: 0.9 % Sodium Chloride 1,000 ML IVC SCH (03:45)
[2022-04-09] MEDS ORDERED: D5% in Water 1,000 ML IVC PRN (04:30)
[2022-04-09] MEDS ORDERED: Naloxone 0.4 MG/ML INJ IVP PRN (04:30)
[2022-04-09] MEDS ORDERED: Ondansetron 4 MG/2 ML VIAL IVP PRN (04:30)
[2022-04-09] MEDS ORDERED: *HR* Dextrose 50 % in Water (Syg) 50 ML SYRINGE IVP PRN ×3 (04:30→15:42)
[2022-04-09] MEDS ORDERED: Dextrose Gel 15 GM/37.5 ML TUBE PO PRN ×2 (04:30)
[2022-04-09] MEDS: Ipratropium/Albuterol Neb 3 ML IH SCH ×5 (04:48→20:01)
[2022-04-09] MEDS ORDERED: methylPREDNISolone 125 MG/2 ML VIAL IVP SCH (06:00)
[2022-04-09] MEDS ORDERED: Insulin LISPRO 300 UNITS/3 ML VIAL SUBQ SCH ×2 (06:00→08:45)
[2022-04-09] MEDS ORDERED: INSULIN HUMAN REGULAR IV ONE (06:17)
[2022-04-09] MEDS ORDERED: SODIUM CHLORIDE 0.9% IV ONE (06:17)
[2022-04-09 07:20] LABS: Thyroid Stimulating Hormone 0.352 mcIU/mL (0.340-5.600)
[2022-04-09 08:41] LABS: Calcium 8.2 mg/dL (8.6-10.3); Potassium 4.4 mEq/L (3.5-5.1)
[2022-04-09] MEDS: Gabapentin 400 MG CAPSULE PO SCH ×3 (08:49→20:37)
[2022-04-09] MEDS: amLODIPine 5 MG TABLET PO SCH (08:49)
[2022-04-09] MEDS: *HR* GlipiZIDE XL (24 HR) 2.5 MG TABLET PO SCH (08:49)
[2022-04-09] MEDS: Aspirin Enteric Coated 81 MG Tablet PO SCH (08:50)
[2022-04-09] MEDS: carvediloL 6.25 MG TABLET PO SCH ×2 (08:50→17:57)
[2022-04-09] MEDS: Metoprolol XL (24 HR) Succ 50 MG TAB.ER.24H PO SCH ×2 (08:50→20:37)
[2022-04-09] MEDS ORDERED: lisinopriL 20 MG TABLET PO SCH (09:00)
[2022-04-09 09:22] LABS: Albumin 3.4 g/dL (3.5-5.7); Bilirubin,Direct 0.1 mg/dL (0.0-0.2); Bilirubin,Indirect 0.4 mg/dL (0.0-1.0); Bilirubin,Total 0.5 mg/dL (0.3-1.0); Globulin 3.3 g/dL (2.4-3.5); Total Protein 6.7 g/dL (6.4-8.9)
[2022-04-09 09:37] LABS: Estimated Average Glucose 344 mg/dl; Hemoglobin A1C 13.6 %
[2022-04-09 10:10] LABS: Potassium 4.7 mEq/L (3.5-5.1)
[2022-04-09 13:08] LABS: Bilirubin,Urine Negative (Negative); Blood,Urine Small (Negative); Clarity,Urine Clear (Clear); Color,Urine Yellow (Yellow); Glucose,Urine (UA) >=1000 mg/dL (Normal); Ketones,Urine Negative (Negative); Leukocyte Esterase,Urine Negative (Negative); Nitrite,Urine Negative (Negative); Protein,Urine 100 mg/dL (Neg-Trace); Urobilinogen,Urine Normal (Normal)
[2022-04-09 13:21] LABS: Calcium 8.1 mg/dL (8.6-10.3); Potassium 5.2 mEq/L (3.5-5.1)
[2022-04-09 13:23] LABS: Bacteria,Urine Few per hpf (None-Few); RBC,Urine 0-3 per hpf (0-3); WBC,Urine 0-3 per hpf (0-3)
[2022-04-09 13:31] LABS: Adenovirus Not Detected (Not Detect); Bordetella Pertussis Not Detected (Not Detect); Chlamydophila pneumoniae Not Detected (Not Detect); Coronavirus 229E Not Detected (Not Detect); Coronavirus HKU1 Not Detected (Not Detect); Coronavirus NL63 Not Detected (Not Detect); Coronavirus OC43 Not Detected (Not Detect); Human Metapneumovirus Not Detected (Not Detect); Human Rhinovirus/Enterovirus Not Detected (Not Detect); Influenza A Subtype 2009 H1 Not Detected (Not Detect); Influenza B Not Detected (Not Detect); Mycoplasma pneumoniae Not Detected (Not Detect); Parainfluenza Virus 1 Not Detected (Not Detect); Parainfluenza Virus 2 Not Detected (Not Detect); Parainfluenza Virus 3 Not Detected (Not Detect); Parainfluenza Virus 4 Not Detected (Not Detect); Respiratory Syncytial Virus Not Detected (Not Detect); SARS-CoV-2 Not Detected (Not Detect)
[2022-04-09] MEDS: MethylPREDNISolone 40 MG/ML VIAL IVP SCH (14:18)
[2022-04-09 17:27] LABS: Calcium 8.9 mg/dL (8.6-10.3); Potassium 4.6 mEq/L (3.5-5.1)
[2022-04-09] MEDS ORDERED: cefTRIAXone 1,000 MG in 0.9 % Sodium Chloride Mini Bag 100 ML IVPB SCH (18:00)
[2022-04-09] MEDS ORDERED: Azithromycin 500 MG in 0.9 % Sodium Chloride 250 ML IVPB SCH (18:00)
[2022-04-09] MEDS ORDERED: cefTRIAXone 1,000 MG in 0.9 % Sodium Chloride 10 ML IVPB SCH (18:00)
[2022-04-09] MEDS: 0.45 % Sodium Chloride w/KCl 20 MEQ/1,000 ML MLS IVC SCH (20:32)
[2022-04-09 22:12] LABS: Calcium 8.4 mg/dL (8.6-10.3); Potassium 4.5 mEq/L (3.5-5.1)
[2022-04-10] MEDS: MethylPREDNISolone 40 MG/ML VIAL IVP SCH ×2 (01:11→18:22)
[2022-04-10] MEDS: Ipratropium/Albuterol Neb 3 ML IH SCH ×6 (03:35→20:04)
[2022-04-10] MEDS ORDERED: *HR* Enoxaparin 40 MG/0.4 ML SYRINGE SQ SCH (06:00)
[2022-04-10 06:20] LABS: Hematocrit 34.9 % (37.5-50.1); Hemoglobin 11.6 g/dL (12.9-16.9); Mean Corpuscular HGB Conc 33.2 g/dL (31.6-35.5); Mean Corpuscular Hemoglobin 25.6 pg (28.0-33.3); Mean Platelet Volume 9.3 fL (9.4-12.4); Platelet Count 263 K/mcL (140-400); Red Blood Count 4.53 M/mcL (4.19-5.50); Red Cell Distribution Width 14.4 % (11.5-14.5); White Blood Count 19.1 K/mcL (4.3-11.1)
[2022-04-10 06:40] LABS: Calcium 8.4 mg/dL (8.6-10.3); Potassium 4.8 mEq/L (3.5-5.1)
[2022-04-10] MEDS: 0.45 % Sodium Chloride w/KCl 20 MEQ/1,000 ML MLS IVC SCH (06:46)
[2022-04-10] MEDS ORDERED: MethylPREDNISolone 40 MG/ML VIAL IVP SCH (09:00)
[2022-04-10] MEDS ORDERED: Insulin DETEMIR 100 UNIT/ML X5UNITS SUBQ SCH ×2 (09:00→21:00)
[2022-04-10] MEDS: amLODIPine 5 MG TABLET PO SCH (09:14)
[2022-04-10] MEDS: Gabapentin 400 MG CAPSULE PO SCH ×3 (09:14→19:53)
[2022-04-10] MEDS: carvediloL 6.25 MG TABLET PO SCH ×2 (09:15→15:43)
[2022-04-10] MEDS: Metoprolol XL (24 HR) Succ 50 MG TAB.ER.24H PO SCH ×2 (09:15→19:53)
[2022-04-10] MEDS: *HR* GlipiZIDE XL (24 HR) 2.5 MG TABLET PO SCH (09:15)
[2022-04-10] MEDS: Aspirin Enteric Coated 81 MG Tablet PO SCH (09:15)
[2022-04-10] MEDS ORDERED: Insulin LISPRO 300 UNITS/3 ML VIAL SUBQ SCH (10:00)
[2022-04-10] MEDS: Insulin LISPRO 300 UNITS/3 ML VIAL SUBQ SCH ×5 (10:09→20:59)
[2022-04-10] MEDS: Furosemide 20 MG TABLET PO SCH (15:43)
[2022-04-11] MEDS: Ipratropium/Albuterol Neb 3 ML IH SCH ×5 (00:26→15:20)
[2022-04-11] MEDS: *HR* Heparin 5,000 UNIT/ML VIAL SQ SCH ×3 (05:30→20:35)
[2022-04-11 07:19] LABS: Basophils % 0.1 %; Eosinophils % 0.1 %; Hematocrit 35.7 % (37.5-50.1); Hemoglobin 11.6 g/dL (12.9-16.9); Immature Granulocytes % 0.7 % (0-4); Lymphocytes # 1.9 K/mcL (0.6-4.6); Lymphocytes % 10.9 %; Mean Corpuscular HGB Conc 32.5 g/dL (31.6-35.5); Mean Corpuscular Hemoglobin 25.5 pg (28.0-33.3); Mean Corpuscular Volume 78.5 fL (83.0-100.0); Neutrophils # 14.3 K/mcL (1.6-8.9); Platelet Count 288 K/mcL (140-400); Red Blood Count 4.55 M/mcL (4.19-5.50); Red Cell Distribution Width 14.6 % (11.5-14.5); Segmented Neutrophils % 82.2 %; White Blood Count 17.4 K/mcL (4.3-11.1)
[2022-04-11 07:36] LABS: Calcium 8.3 mg/dL (8.6-10.3); Magnesium 1.4 mg/dL (1.6-2.6); Potassium 5.1 mEq/L (3.5-5.1)
[2022-04-11] MEDS: Insulin DETEMIR 100 UNIT/ML X5UNITS SUBQ SCH ×2 (09:23→20:36)
[2022-04-11] MEDS: amLODIPine 5 MG TABLET PO SCH (09:23)
[2022-04-11] MEDS: Furosemide 20 MG TABLET PO SCH (09:24)
[2022-04-11] MEDS: carvediloL 6.25 MG TABLET PO SCH ×2 (09:24→16:48)
[2022-04-11] MEDS: Aspirin Enteric Coated 81 MG Tablet PO SCH (09:24)
[2022-04-11] MEDS: Metoprolol XL (24 HR) Succ 50 MG TAB.ER.24H PO SCH ×2 (09:24→20:36)
[2022-04-11] MEDS: *HR* GlipiZIDE XL (24 HR) 2.5 MG TABLET PO SCH (09:24)
[2022-04-11] MEDS: Gabapentin 400 MG CAPSULE PO SCH ×3 (09:24→20:36)
[2022-04-11] MEDS: Insulin LISPRO 300 UNITS/3 ML VIAL SUBQ SCH ×12 (09:25→20:37)
[2022-04-11] MEDS ORDERED: 0.9 % Sodium Chloride 1,000 ML IVC SCH (12:45)
[2022-04-11] MEDS ORDERED: methylPREDNISolone 125 MG/2 ML VIAL IVP ONE (16:59)
[2022-04-11] MEDS ORDERED: Ipratropium/Albuterol Neb 3 ML IH PRN (17:01)
[2022-04-11] MEDS ORDERED: Benzonatate 100 MG CAPSULE PO PRN (22:08)
[2022-04-12] MEDS ORDERED: HYDROcodone BIT/Homatropine LQ 5 MG/5 ML UDC PO ONE (01:05)
[2022-04-12] MEDS: *HR* Heparin 5,000 UNIT/ML VIAL SQ SCH ×3 (05:15→23:01)
[2022-04-12] MEDS: Metoprolol XL (24 HR) Succ 50 MG TAB.ER.24H PO SCH ×2 (08:09→22:57)
[2022-04-12] MEDS: carvediloL 6.25 MG TABLET PO SCH ×2 (08:09→17:02)
[2022-04-12] MEDS: amLODIPine 5 MG TABLET PO SCH (08:09)
[2022-04-12] MEDS: Aspirin Enteric Coated 81 MG Tablet PO SCH (08:09)
[2022-04-12] MEDS: Furosemide 20 MG TABLET PO SCH (08:09)
[2022-04-12] MEDS: Azithromycin 250 MG TABLET PO SCH (08:09)
[2022-04-12] MEDS: *HR* GlipiZIDE XL (24 HR) 2.5 MG TABLET PO SCH (08:09)
[2022-04-12] MEDS: Gabapentin 400 MG CAPSULE PO SCH ×3 (08:10→22:57)
[2022-04-12] MEDS: Insulin LISPRO 300 UNITS/3 ML VIAL SUBQ SCH ×7 (08:23→22:58)
[2022-04-12] MEDS ORDERED: predniSONE 20 MG TABLET PO SCH (09:00)
[2022-04-12] MEDS: Insulin DETEMIR 100 UNIT/ML X5UNITS SUBQ SCH ×2 (09:15→22:57)
[2022-04-12] MEDS ORDERED: GuaiFENesin/Codeine Oral Soln 5 ML UDC PO PRN (16:36)
[2022-04-13] MEDS: *HR* Heparin 5,000 UNIT/ML VIAL SQ SCH ×3 (06:24→19:49)
[2022-04-13 06:41] LABS: Basophils % 0.1 %; Eosinophils % 0.1 %; Hematocrit 38.6 % (37.5-50.1); Hemoglobin 12.5 g/dL (12.9-16.9); Immature Granulocytes % 0.7 % (0-4); Lymphocytes # 2.4 K/mcL (0.6-4.6); Lymphocytes % 16.8 %; Mean Corpuscular HGB Conc 32.4 g/dL (31.6-35.5); Mean Corpuscular Hemoglobin 25.6 pg (28.0-33.3); Mean Corpuscular Volume 78.9 fL (83.0-100.0); Mean Platelet Volume 9.3 fL (9.4-12.4); Monocytes # 1.2 K/mcL (0.0-1.3); Monocytes % 8.4 %; Neutrophils # 10.5 K/mcL (1.6-8.9); Platelet Count 294 K/mcL (140-400); Red Blood Count 4.89 M/mcL (4.19-5.50); Red Cell Distribution Width 14.5 % (11.5-14.5); Segmented Neutrophils % 73.9 %; White Blood Count 14.2 K/mcL (4.3-11.1)
[2022-04-13 07:01] LABS: Calcium 8.7 mg/dL (8.6-10.3); Potassium 4.6 mEq/L (3.5-5.1)
[2022-04-13] MEDS: Aspirin Enteric Coated 81 MG Tablet PO SCH (09:57)
[2022-04-13] MEDS: Furosemide 20 MG TABLET PO SCH (09:57)
[2022-04-13] MEDS: *HR* GlipiZIDE XL (24 HR) 2.5 MG TABLET PO SCH (09:57)
[2022-04-13] MEDS: carvediloL 6.25 MG TABLET PO SCH ×2 (09:57→16:51)
[2022-04-13] MEDS: predniSONE 20 MG TABLET PO SCH (09:58)
[2022-04-13] MEDS: amLODIPine 5 MG TABLET PO SCH (09:58)
[2022-04-13] MEDS: Gabapentin 400 MG CAPSULE PO SCH ×3 (09:58→19:46)
[2022-04-13] MEDS: Azithromycin 250 MG TABLET PO SCH (09:58)
[2022-04-13] MEDS: Metoprolol XL (24 HR) Succ 50 MG TAB.ER.24H PO SCH ×2 (09:58→19:47)
[2022-04-13] MEDS: Insulin LISPRO 300 UNITS/3 ML VIAL SUBQ SCH ×8 (09:59→19:47)
[2022-04-13] MEDS: Insulin DETEMIR 100 UNIT/ML X5UNITS SUBQ SCH ×2 (09:59→19:47)
[2022-04-13] MEDS ORDERED: 0.9 % Sodium Chloride 1,000 ML IVC SCH (10:45)
[2022-04-14] MEDS: *HR* Heparin 5,000 UNIT/ML VIAL SQ SCH ×2 (05:26→12:36)
[2022-04-14 06:26] LABS: Basophils % 0.2 %; Eosinophils # 0.1 K/mcL (0.0-0.6); Eosinophils % 0.8 %; Hematocrit 40.7 % (37.5-50.1); Hemoglobin 13.3 g/dL (12.9-16.9); Immature Granulocytes % 1.3 % (0-4); Lymphocytes # 3.4 K/mcL (0.6-4.6); Lymphocytes % 19.4 %; Mean Corpuscular HGB Conc 32.7 g/dL (31.6-35.5); Mean Corpuscular Hemoglobin 25.8 pg (28.0-33.3); Mean Corpuscular Volume 78.9 fL (83.0-100.0); Mean Platelet Volume 9.6 fL (9.4-12.4); Monocytes # 1.2 K/mcL (0.0-1.3); Monocytes % 6.8 %; Platelet Count 304 K/mcL (140-400); Red Blood Count 5.16 M/mcL (4.19-5.50); Red Cell Distribution Width 14.5 % (11.5-14.5); Segmented Neutrophils % 71.5 %; White Blood Count 17.4 K/mcL (4.3-11.1)
[2022-04-14 06:34] LABS: Neutrophils # 12.4 K/mcL (1.6-8.9)
[2022-04-14 06:44] LABS: Calcium 8.6 mg/dL (8.6-10.3); Magnesium 1.8 mg/dL (1.6-2.6); Potassium 4.3 mEq/L (3.5-5.1)
[2022-04-14] MEDS: carvediloL 6.25 MG TABLET PO SCH (08:31)
[2022-04-14] MEDS: Aspirin Enteric Coated 81 MG Tablet PO SCH (08:31)
[2022-04-14] MEDS: Azithromycin 250 MG TABLET PO SCH (08:31)
[2022-04-14] MEDS: *HR* GlipiZIDE XL (24 HR) 2.5 MG TABLET PO SCH (08:31)
[2022-04-14] MEDS: amLODIPine 5 MG TABLET PO SCH (08:32)
[2022-04-14] MEDS: predniSONE 20 MG TABLET PO SCH (08:32)
[2022-04-14] MEDS: Insulin LISPRO 300 UNITS/3 ML VIAL SUBQ SCH ×4 (08:32→12:24)
[2022-04-14] MEDS: Metoprolol XL (24 HR) Succ 50 MG TAB.ER.24H PO SCH (08:32)
[2022-04-14] MEDS: Gabapentin 400 MG CAPSULE PO SCH (08:32)
[2022-04-14] MEDS: Insulin DETEMIR 100 UNIT/ML X5UNITS SUBQ SCH (09:23)
[2022-04-15 08:25] VITALS: BP 163/65; PULSE 56; RESP 17; TEMP 97.9; O2SAT 97
== END 2022-04-14 17:08 | disposition home or self-care (01) | DRG 640 ==
LOC: INPPIK 22:14 → EMEROOPIK 22:14 → INPPIK 04-09 04:35
PROVIDERS: ADMIT Student in an Organized Health Care Education/Training Program; ATTEND Internal Medicine